=== PATIENT | female | born 1945 | race African-American/Black ===

== ENCOUNTER 2017-06-21 11:30 | Day surgery (SDC) | payer MEDICARE ==
[2017-06-21 12:42] LABS: BASOPHILS 0.3 % (0-2); EOSINOPHILS 1.7 % (0-7); HEMATOCRIT 44.5 % (36.0-48.0); HEMOGLOBIN 14.7 g/dL (12-16); IMMATURE GRANULOCYTES 0.5 % (0-5); LYMPHOCYTES 25.6 % (15-50); MCH 28.7 pg (26.0-34.0); MCV 86.9 fL (80.0-100.0); MEAN PLATELET VOLUME 10.4 fL (7.4-10.4); MONOCYTES 5.6 % (2-11); NEUTROPHILS 66.3 % (40-80); PLATELET COUNT 189 10x3/uL (130-400); RBC 5.12 10x6/uL (4.00-5.40); RDW 14.7 % (11.5-14.5); WBC 8.9 10x3/uL (4.8-10.8)
[2017-06-21 13:03] LABS: ANION GAP 22.1 mmol/L (8-16); CALCIUM 9.5 mg/dL (8.5-10.1); CARBON DIOXIDE 19.6 mmol/L (21.0-32.0); POTASSIUM - SERUM 4.7 mmol/L (3.5-5.1)
[2017-06-21] MEDS ORDERED: NORVASC5 MG PO (13:29)
[2017-06-21] MEDS ORDERED: TENORMIN50 MG PO (13:29)
[2017-06-21] MEDS ORDERED: OMEPRAZOLE20 M1 PO (13:30)
[2017-06-21] MEDS ORDERED: ALDACTONE25 MG PO (13:30)
[2017-06-21] MEDS ORDERED: COZAAR50 MG PO (13:30)
[2017-06-21] MEDS ORDERED: GLUCOPHAGE500 MG PO (13:31)
[2017-06-21] MEDS ORDERED: ULTRAM50 MG PO (13:31)
[2017-06-21] MEDS ORDERED: MAG-OX 400 MG400 MG PO (13:32)
[2017-06-21 13:36] VITALS: BP 122/80; BMI 45.0
--- NOTE | 2017-06-21 16:03 | NUR ---
PT UP TO BR TO VOID, PASSED LARGE AMT OF GAS.
--- NOTE | 2017-06-21 16:45 | NUR ---
IV D/C'D CATH INTACT.
--- NOTE | 2017-06-21 17:00 | NUR ---
D/C'D HOME VIA W/C TO PRIVATE CAR.
--- NOTE | 2017-06-30 14:40 | OP ---
PATIENT NAME: RENÉE HERMAN MEDICAL RECORD: [id number] :41 LOCATION:[facility] ADMISSION DATE: SURGEON: KATHRYN FORD DO DATE OF OPERATION: 06/21/2017 PROCEDURE: Colonoscopy with polypectomy. INDICATION FOR PROCEDURE: Family history positive for cancer of the GI extract in her sister, history of colon polyps, diverticular disease, chronic constipation. SCOPE: Olympus video pediatric colonoscope. MEDICATIONS: Propofol 680 mg IV per anesthesia. WITHDRAWAL TIME: 20 minutes. ESTIMATED BLOOD LOSS: Minimal. COMPLICATIONS: None. FINDINGS: Informed consent was given. The patient was made comfortable with the above medication. After reaching an adequate level of sedation by slow IV push, the patient was placed on her left side. A digital rectal examination was performed and revealed some hemorrhoids externally without bleeding. The endoscope was then advanced under direct visualization through the rectum to the cecum with visualization of the appendiceal orifice and the ileocecal valve. The scope was slowly withdrawn and mucosa was carefully examined. The prep quality was excellent. Retroflexion was performed in the rectum with visualization of moderate-sized nonbleeding internal hemorrhoids. Retroflexion was also performed in the ascending colon, which revealed 3 benign-appearing sessile polyps, which ranged in size from 3 mm to 5 mm in diameter. They were all removed using a hot snare in one piece and completely retrieved. On forward viewing the ascending colon, there was a benign-appearing sessile polyp, which measured approximately 3 mm in diameter. It was removed using hot forceps in one piece and completely retrieved. There was evidence of mild pandiverticulosis. There were no polyps in any locations other than the ascending colon on this examination. The endoscope was withdrawn from the patient. The patient tolerated the procedure well and there were no complications. IMPRESSIONS: 1. Four polyps as described above, removed using hot forceps and hot snare. 2. Mild pandiverticulosis. 3. Internal and external hemorrhoids, which were nonbleeding. PLAN AND RECOMMENDATIONS: 1. Discharge home when recovery parameters are met. 2. High-fiber diet. 3. Continue current medications. 4. Consider referral to general surgery regarding the hemorrhoids. 5. Recall colonoscopy in 3 years. TRANSINT:[id number] Voice Confirmation ID: [id number] DOCUMENT ID: [id number] OPERATIVE REPORT [id number] RENÉE HERMAN KATHRYN FORD DO at 1440 CC: [id number] DICTATION DATE: 06/21/17 1535 ENGLISH AS A SECOND LANGUAGE TEACHER: 06/21/171937 [facility] 06/21/17 [facility] [address] [place] [address]
== END 2017-06-21 17:00 | disposition home or self-care (01) ==
LOC: D.OPS 11:30
PROVIDERS: Anesthesiology
DX: K63.5 Polyp of colon (principal); K59.09 Other constipation; K64.4 Residual hemorrhoidal skin tags; K64.8 Other hemorrhoids; Z80.0 Family history of malignant neoplasm of digestive organs; Z01.812 Encounter for preprocedural laboratory examination